=== PATIENT | male | born 1965 | race Caucasian/White ===

== ENCOUNTER 2018-05-28 08:11 | Day surgery (SDC) | payer OTHER ==
[~2018-05-28] VITALS: Ht 182.9 cm; Wt 95.2 kg
[2018-05-28 08:30] VITALS: BP 157/97
[2018-05-28 14:39] VITALS: BP 136/89
== END 2018-05-28 14:00 | disposition home or self-care (01) ==
LOC: DS 08:11 → OR 09:30 → DS 09:30
DX: S52.611A Displaced fracture of right ulna styloid process, initial encounter for closed fracture (principal); S52.591A Other fractures of lower end of right radius, initial encounter for closed fracture; W19.XXXA Unspecified fall, initial encounter; Y93.89 Activity, other specified; Y92.89 Other specified places as the place of occurrence of the external cause; Y99.8 Other external cause status; Z79.899 Other long term (current) drug therapy; Z98.890 Other specified postprocedural states
CPT/HCPCS: 76001; C1713; J0690; J1170; J2175; J2250; J2405; J2704; J3010; J3490; J7120

== ENCOUNTER 2018-10-13 06:09 | Day surgery (SDC) | payer OTHER ==
[~2018-10-13] VITALS: Ht 182.9 cm; Wt 95.2 kg
[2018-10-13 06:24] VITALS: BP 145/102
[2018-10-13 15:45] VITALS: BP 147/92
== END 2018-10-13 14:20 | disposition home or self-care (01) ==
LOC: DS 06:09 → OR 07:30 → DS 14:20
PROVIDERS: Neuromusculoskeletal Medicine, Sports Medicine
PROC: 0RNJ0ZZ Release Right Shoulder Joint, Open Approach (ICD-10-PCS; 2018-10-13)
PROC: 0LM10ZZ Reattachment of Right Shoulder Tendon, Open Approach (ICD-10-PCS; principal; 2018-10-13 07:30)
DX: M75.121 Complete rotator cuff tear or rupture of right shoulder, not specified as traumatic (principal); M75.41 Impingement syndrome of right shoulder; M19.011 Primary osteoarthritis, right shoulder
CPT/HCPCS: C1713; J0330; J0690; J1170; J1885; J2175; J2250; J2270; J2405; J2704; J3010; J3490; J7120